=== PATIENT | female | born 1970 | race Caucasian/White ===

== ENCOUNTER 2018-07-13 12:00 | Emergency (ER) | payer BC, OTHER ==
[2018-07-13 12:22] VITALS: BP 143/99
--- NOTE | 2018-07-13 12:32 | UC ---
Throat Pain/Nasal Home HPI - HPI Summary HPI Summary: sinus pain and pressure x 2 weeks runny nose, nasal congestion , pnd and sore throat no fever, no chills has been taking otc cold meds without improvement - History of Current Complaint Chief Complaint: UCGeneralIllness Stated Complaint: SINUS Time Seen by Provider: 07/13/18 12:23 Hx Obtained From: Patient Hx Last Menstrual Period: mirena ?: No Onset/Duration: Gradual Onset, Lasting Weeks - 2, Still Present Severity: Moderate Pain Intensity: 6 Cough: None Associated Signs & Symptoms: Positive: Sinus Discomfort, Nasal Discharge. Negative: Fever, Vomiting, Rash - Allergies/Home Medications Allergies/Adverse Reactions: Allergies Allergy/AdvReac Type Severity Reaction Status Date / Time No Known Allergies Allergy Verified 07/13/18 12:20 PMH/Surg Hx/FS Hx/Imm Hx Previously Healthy: Yes - Surgical History Surgical History: None - Family History Known Family History: Positive: Hypertension - Social History Alcohol Use: None Substance Use Type: None Smoking Status (MU): Never Smoked Tobacco Review of Systems All Other Systems Reviewed And Are Negative: Yes Constitutional: Positive: Negative Skin: Positive: Negative Eyes: Positive: Negative ENT: Positive: Nasal Discharge, Sinus Congestion, Sinus Pain/Tenderness Respiratory: Positive: Cough Cardiovascular: Positive: Negative Gastrointestinal: Positive: Negative Genitourinary: Positive: Negative Is Patient Immunocompromised?: No Physical Exam Triage Information Reviewed: Yes Appearance: Well-Appearing, No Pain Distress, Well-Nourished Vital Signs: Initial Vital Signs Temp 98.7 F 07/13/18 12:19 Pulse 103 07/13/18 12:19 Resp 18 07/13/18 12:19 BP 143/99 07/13/18 12:19 Pulse Ox 100 07/13/18 12:19 Vital Signs Reviewed: Yes Eye Exam: Normal Eyes: Positive: Conjunctiva Clear ENT: Positive: Pharyngeal erythema, Nasal congestion, Nasal drainage, TMs normal. Negative: TM bulging, TM dull, TM red, Tonsillar swelling, Tonsillar exudate Neck: Positive: Supple, Nontender, No Lymphadenopathy Respiratory: Positive: Chest non-tender, Lungs clear, Normal breath sounds, No respiratory distress Cardiovascular: Positive: RRR, No Murmur, Pulses Normal Skin Exam: Normal Throat Pain/Nasal Course/Dx - Course Course Of Treatment: elevated bp : elevated BP. please monitor your BP daily. follow up with your pcp - Differential Dx/Diagnosis Provider Diagnosis: Sinusitis, Elevated BP without diagnosis of hypertension Discharge - Sign-Out/Discharge Documenting (check all that apply): Patient Departure All imaging exams completed and their final reports reviewed: No Studies - Discharge Plan Condition: Stable Disposition: HOME Prescriptions: Amoxicillin/Clavulanate TAB* [Augmentin TAB 875*] 875 mg PO BID #20 tab Fluticasone NASAL SPRAY 50MCG* [Flonase NASAL SPRAY 50MCG*] 2 spray BOTH NARES DAILY #1 btl Patient Education Materials: Sinusitis (ED) Referrals: Zonia Rossi PA [Primary Care Provider] - If Needed Additional Instructions: elevated BP please monitor your BP daily follow up with your pcp - Billing Disposition and Condition Condition: STABLE Disposition: Home
== END 2018-07-13 12:33 | disposition home or self-care (01) ==
LOC: UCCORT 12:00
DX: J32.9 Chronic sinusitis, unspecified (principal); R03.0 Elevated blood-pressure reading, without diagnosis of hypertension
CPT/HCPCS: 99212; G0463

== ENCOUNTER 2018-09-29 12:09 | Emergency (ER) | payer BC ==
[2018-09-29 14:17] VITALS: BP 135/78
--- NOTE | 2018-09-29 15:10 | UC ---
General HPI - HPI Summary HPI Summary: Pt reports 2 days of intermittent feeling dizzy (room spinning), frontal headache, progressive left ear pain. no fever,chills. No n/v. No cp, sob. no vision changes. No trauma. feels mild congested but not as congested as usual sinus congestion. no analgesia taken. no weakness, paresthesia not medications reviewed this visit - History of Current Complaint Chief Complaint: UCDizziness Stated Complaint: HEADACHE DIZZY LEFT EAR Time Seen by Provider: 09/29/18 14:33 Hx Obtained From: Patient Hx Last Menstrual Period: mirena Onset/Duration: Gradual Onset, Lasting Minutes Onset Severity: Mild Pain Intensity: 6 - Allergy/Home Medications Allergies/Adverse Reactions: Allergies Allergy/AdvReac Type Severity Reaction Status Date / Time No Known Allergies Allergy Verified 09/29/18 14:14 PMH/Surg Hx/FS Hx/Imm Hx Previously Healthy: Yes - Surgical History Surgical History: None - Family History Known Family History: Positive: Hypertension - Social History Occupation: Employed Full-time Alcohol Use: None Substance Use Type: None Smoking Status (MU): Never Smoked Tobacco Review of Systems All Other Systems Reviewed And Are Negative: Yes Constitutional: Positive: Fatigue ENT: Positive: Ear Ache, Sinus Congestion - mild. Negative: Nasal Discharge Cardiovascular: Positive: Negative Gastrointestinal: Positive: Negative. Negative: Nausea Motor: Positive: Negative Neurovascular: Positive: Negative Musculoskeletal: Positive: Negative - frontal Neurological: Positive: Headache - g Physical Exam - Summary Physical Exam Summary: Vital Signs Reviewed: Yes A+Ox3, no distress Eyes: Conjunctiva Clear, MARIELENA. EOM intact and full ENT: Hearing grossly normal Left TM + fluid, no erythema, buldge Right TM wnl, mild turbinate bogginess, mmoist, uvula midline, no exudate, no erythema + 3 beat extinguishing nystagmus to the left with symptom + TTP frontal hematoma Neck: Positive: Supple Respiratory: Positive: No respiratory distress, No accessory muscle use + CTA throughout no w/r Cardiovascular: RRR nl s1, s2 no m/r, no temporal artery pain, CBT <2 sec abd soft + BS nt/nd no guarding, no distension Musculoskeletal Exam: FELIX x 4 without difficulty Strength Intact, ROM Intact Neurological: Positive: Alert, + sensation throughout CN 2-12 intact, + nystagmus full AROM x 4 Psychological: Positive: Normal Response To Family Skin: Positive: no rash, no ecchymosis Triage Information Reviewed: Yes Vital Signs: Initial Vital Signs Temp 98.7 F 09/29/18 14:12 Pulse 89 09/29/18 14:12 Resp 17 09/29/18 14:12 BP 135/78 09/29/18 14:12 Pulse Ox 100 09/29/18 14:12 Course/Dx - Course Course Of Treatment: Pt presents with intermittent dizzines, frontal headache, fatigue x 2 days No cp, sob VSS EKG NSR no acute ST, Twave changes Pt with nystagmus to left, extinguishing, symptomatic + frontal sinus discomfort Susptect sinusitis hydrate flonase abx decongestant humidified air strict return precautions pt gets yeast infection from abx - Diagnoses Provider Diagnosis: Rhinosinusitis, Serous otitis media Discharge - Sign-Out/Discharge Documenting (check all that apply): Patient Departure All imaging exams completed and their final reports reviewed: No Studies - Discharge Plan Condition: Stable Disposition: HOME Prescriptions: Amoxicillin/Clavulanate TAB* [Augmentin TAB 875*] 875 mg PO BID #20 tab Fluconazole [Diflucan 150 MG (NF)] 150 mg PO ONCE PRN #1 tab PRN Reason: vaginal yeast infection Fluticasone NASAL SPRAY 50MCG* [Flonase NASAL SPRAY 50MCG*] 2 spray BOTH NARES DAILY #1 btl Patient Education Materials: Rhinosinusitis (ED), Serous Otitis Media (ED) Referrals: Zonia Rossi PA [Primary Care Provider] - Additional Instructions: - Stay well hydrated. Drink plenty of non-alcoholic, non-caffinated beverages. - Alternate ibuprofen (Advil, Motrin) 600mg and Tylenol every 3 hours for pain or fever. Take with food. Do NOT take for more than 4-5 days. - These infections are spread by secretions - do NOT share eating or drinking utensils - clean items you share with other people such as cell phones, computer mouse, TV remote, computer tablets,etc. Once you have been antibiotics for 2 days, change your toothbrush and your pillowcase. - get plenty of restful sleep - humidify the air in the room where you sleep - boil water, run a hot steam shower, vaporizer, cups of water by heat register - okay to take over the counter decongestant and cough medication - use nasal spray as prescribed - Take antibiotics as prescribed - You have been given a prescription for diflucan - this medication can be used to treat a vaginal yeast infection if you develop from the antibiotics - eating yogurt and taking probiotic may help decrease your yeast infection - contact your doctor to schedule a follow-up appointment next week. If you devleop difficulty walking, vision changes, vomiting, pain or ANY other concerns it is recommended you go to the emergency department for further evaluation and treatment - Billing Disposition and Condition Condition: STABLE Disposition: Home
== END 2018-09-29 15:39 | disposition home or self-care (01) ==
LOC: UCCORT 12:09
DX: J32.9 Chronic sinusitis, unspecified (principal); H65.92 Unspecified nonsuppurative otitis media, left ear; R53.83 Other fatigue; R42 Dizziness and giddiness
CPT/HCPCS: 93005; 99212; G0463